=== PATIENT | female | born 1935 | race Caucasian/White ===

== ENCOUNTER 2017-10-16 17:22 | Inpatient (IN) | payer OTHER ==
[2017-10-16] MEDS: IPRATROPIUM (NEB) 0.5 MG/2.5 ML AMP NEB ×2 (17:52→21:48)
[2017-10-16] MEDS: ALBUTEROL 0.083% (NEB) 2.5 MG/3 ML AMP NEB (17:52)
[2017-10-16] MEDS: DILTIAZEM 50 MG INJ IV (18:01)
[2017-10-16] MEDS: PIPER-TAZO 3.375 GM IV (PMX) 100 ML IVPB (18:13)
[2017-10-16 18:21] LABS: ADD MAN DIFF? NO
[2017-10-16 18:23] LABS: BASOPHILS % 0.3 % (0.0-2.0); EOSINOPHILS % 0.3 % (0.0-7.0); HEMATOCRIT 45.7 % (37.0-47.0); HEMOGLOBIN 14.9 g/dl (12.0-16.0); LYMPHOCYTES # 1.4 10^3/ul (0.8-2.9); LYMPHOCYTES % 15.9 % (15.0-51.0); MEAN CORPUSCULAR HEMOGLOBIN 30.3 pg (29.0-33.0); MEAN CORPUSCULAR HGB CONC 32.6 g/dl (32.0-37.0); MEAN CORPUSCULAR VOLUME 92.9 fl (82.0-101.0); MEAN PLATELET VOLUME 9.8 fl (7.4-10.4); MONOCYTE # 0.7 10^3/ul (0.3-0.9); MONOCYTES % 7.7 % (0.0-11.0); NEUTROPHIL # 6.7 10^3/ul (1.6-7.5); NEUTROPHILS % 75.6 % (39.0-77.0); PLATELET COUNT 218 10^3/UL (140-415); RED BLOOD COUNT 4.92 10^6/ul (4.20-5.40); RED CELL DISTRIBUTION WIDTH 14.9 % (11.5-14.5)
[2017-10-16 18:23] LABS: WHITE BLOOD COUNT 8.9 10^3/ul (4.8-10.8)
[2017-10-16] MEDS: DILTIAZEM-D5W 125MG/125ML DRIP 125 ML IV (18:29)
[2017-10-16 18:44] LABS: LACTIC ACID 2.6 mmol/L (0.5-2.0)
[2017-10-16 18:45] LABS: INR 1.29; PROTIME 16.3 Sec (11.9-14.9); PT RATIO 1.3
[2017-10-16 18:46] LABS: PARTIAL THROMBOPLASTIN TIME 28.5 Sec (25.0-35.0)
[2017-10-16 18:47] LABS: ALANINE AMINOTRANSFERASE 31 IU/L (13-69); ALBUMIN 4.4 g/dl (3.3-4.9); ALBUMIN/GLOBULIN RATIO 1.25; ALKALINE PHOSPHATASE 88 IU/L (42-121); AMYLASE 41 U/L (11-123); ANION GAP 21 (8-16); ASPARTATE AMINO TRANSFERASE 39 IU/L (15-46); BLOOD UREA NITROGEN 18 mg/dl (7-20); CALCIUM 9.4 mg/dl (8.4-10.2); CARBON DIOXIDE 22 mmol/L (21-31); CHLORIDE 106 mmol/L (97-110); CREATINE KINASE 150 IU/L (23-200); CREATININE 0.68 mg/dl (0.44-1.00); GLUCOSE 194 mg/dl (70-220); POTASSIUM 4.2 mmol/L (3.5-5.1); SODIUM 145 mmol/L (135-144); TOTAL PROTEIN 7.9 g/dl (6.1-8.1)
[2017-10-16 18:56] LABS: B-TYPE NATRIURETIC PEPTIDE 7750 PG/ML (0-450); CK INDEX 3.5; CK-MB 5.24 ng/ml (0.0-2.4); TROPONIN-I 0.045 ng/ml (0.000-0.120)
[2017-10-16] MEDS: VANCOMYCIN 1 GM (PMX) 250 ML IVPB (18:59)
[2017-10-16] MEDS: SODIUM CHLORIDE 0.9% 1L BAG IV* (19:00)
[2017-10-16 19:14] LABS: AADO2 Arterial 286.4 mmHg (7.0-24.0); Allen Test ACCEPTAB; Arterial Base Excess -3.3 mmol/L (-3.0-3); Arterial Blood Gas Oxygen Sat 99.6 mmHG (95.0-100.0); Arterial COHb 0.4 % (0.0-3.0); Arterial Fraction of Oxyhgb 98.7 % (93.0-99.0); Arterial HCO3 20.7 mmol/L (22.0-26.0); Arterial MetHb 0.5 % (0.0-1.5); Arterial Total Hemglobin 14.6 g/dl (12.0-18.0); Arterial pCO2 34.5 mmhg (35-45); Blood Gas IEPAP 15/5; MODE MASK - BIPAP; Site Right Radial
[2017-10-16 19:20] LABS: ADD UMIC YES; UR ASCORBIC ACID NEGATIVE (NEGATIVE); UR BACTERIA FEW /HPF (NONE SEEN); UR BILIRUBIN (Dip) NEGATIVE (NEGATIVE); UR BLOOD (Dip) NEGATIVE (NEGATIVE); UR CLARITY SLIGHTLY CLOUDY (CLEAR); UR COLOR AMBER (YELLOW); UR GLUCOSE (Dip) 1+ mg/dL (NEGATIVE); UR KETONES (Dip) TRACE mg/dL (NEGATIVE); UR LEUKOCYTE ESTERASE (Dip) NEGATIVE Leu/ul (NEGATIVE); UR MUCUS MODERATE /HPF (NONE SEEN); UR NITRITE (Dip) NEGATIVE (NEGATIVE); UR RBC 3 /HPF (0-5); UR SPECIFIC GRAVITY (Dip) 1.028 (1.003-1.030); UR SQUAMOUS EPITHELIAL CELL FEW /HPF (FEW); UR TOTAL PROTEIN (Dip) 2+ mg/dl (NEGATIVE); UR UROBILINOGEN (Dip) 2+ mg/dL (NEGATIVE); UR WBC 3 /HPF (0-5)
[2017-10-16 20:39] LABS: LACTIC ACID 2.3 mmol/L (0.5-2.0)
[2017-10-16] MEDS: ALBUTEROL 0.5% (NEB) 2.5 MG/0.5 ML AMP NEB (21:48)
[2017-10-16 22:21] LABS: LACTIC ACID 2.6 mmol/L (0.5-2.0)
[2017-10-16] MEDS ORDERED: ONDANSETRON 4 MG INJ IV (22:30)
[2017-10-16] MEDS ORDERED: ACETAMINOPHEN 325 MG TAB PO (22:30)
[2017-10-17] MEDS ORDERED: ONDANSETRON 4 MG INJ IV
[2017-10-17] MEDS ORDERED: NACL 0.9% 3 ML SYG IV
[2017-10-17] MEDS ORDERED: DILTIAZEM-D5W 125MG/125ML DRIP 125 ML IV
[2017-10-17] MEDS ORDERED: NITROGLYCERIN (SL) 0.4 MG TAB SL
[2017-10-17] MEDS ORDERED: morphine LIQ (10 MG/5 ML) CUP PO
[2017-10-17] MEDS: IOHEXOL 300MG/ML 150 ML BTL (00:14)
[2017-10-17] MEDS: SOD CHLORIDE 0.9% 100 ML ×2 (00:14→10:16)
[2017-10-17] MEDS: INSULIN ASPART [NOVOLOG] 3 ML PEN SC ×7 (00:29→21:00)
[2017-10-17] MEDS ORDERED: GLUCAGON 1 MG INJ IM (00:30)
[2017-10-17] MEDS ORDERED: DEXTROSE 50% 50 ML SYRINGE IV ×2 (00:30)
[2017-10-17] MEDS ORDERED: GLUCOSE GEL 15 GRAM TUBE PO ×2 (00:30)
[2017-10-17] MEDS ORDERED: GLUCOSE GEL 15 GRAM TUBE BUCCAL (00:30)
[2017-10-17] MEDS: METOPROLOL 25 MG TAB PO ×3 (00:34→21:22)
[2017-10-17] MEDS: FUROSEMIDE 20 MG INJ IV ×3 (00:34→17:19)
[2017-10-17 00:54] LABS: CREATINE KINASE 130 IU/L (23-200)
[2017-10-17 01:07] LABS: CK-MB 5.16 ng/ml (0.0-2.4); TROPONIN-I 0.048 ng/ml (0.000-0.120)
[2017-10-17] MEDS: ACCU-CHEK XX (02:00)
[2017-10-17 06:57] LABS: ADD MAN DIFF? NO
[2017-10-17 07:05] LABS: BASOPHILS % 0.3 % (0.0-2.0); EOSINOPHILS % 0.6 % (0.0-7.0); HEMATOCRIT 39.7 % (37.0-47.0); HEMOGLOBIN 12.5 g/dl (12.0-16.0); LYMPHOCYTES # 0.8 10^3/ul (0.8-2.9); LYMPHOCYTES % 11.9 % (15.0-51.0); MEAN CORPUSCULAR HEMOGLOBIN 29.7 pg (29.0-33.0); MEAN CORPUSCULAR HGB CONC 31.5 g/dl (32.0-37.0); MEAN CORPUSCULAR VOLUME 94.3 fl (82.0-101.0); MEAN PLATELET VOLUME 9.5 fl (7.4-10.4); MONOCYTE # 0.6 10^3/ul (0.3-0.9); MONOCYTES % 9.4 % (0.0-11.0); NEUTROPHILS % 77.6 % (39.0-77.0); PLATELET COUNT 152 10^3/UL (140-415); RED BLOOD COUNT 4.21 10^6/ul (4.20-5.40); RED CELL DISTRIBUTION WIDTH 14.9 % (11.5-14.5)
[2017-10-17 07:05] LABS: WHITE BLOOD COUNT 6.4 10^3/ul (4.8-10.8)
[2017-10-17 07:23] LABS: CREATINE KINASE 132 IU/L (23-200)
[2017-10-17 07:35] LABS: CK INDEX 3.2; CK-MB 4.22 ng/ml (0.0-2.4); TROPONIN-I 0.059 ng/ml (0.000-0.120)
[2017-10-17 07:42] LABS: LACTIC ACID 2.1 mmol/L (0.5-2.0)
[2017-10-17 08:02] LABS: ALANINE AMINOTRANSFERASE 30 IU/L (13-69); ALBUMIN 3.4 g/dl (3.3-4.9); ALKALINE PHOSPHATASE 66 IU/L (42-121); ANION GAP 15 (8-16); ASPARTATE AMINO TRANSFERASE 26 IU/L (15-46); BILIRUBIN,INDIRECT 0.7 mg/dl (0-1.1); BILIRUBIN,TOTAL 0.7 mg/dl (0.2-1.3); BLOOD UREA NITROGEN 17 mg/dl (7-20); CALCIUM 8.8 mg/dl (8.4-10.2); CARBON DIOXIDE 26 mmol/L (21-31); CHLORIDE 110 mmol/L (97-110); CHOL/HDL RATIO 2.8 RATIO; CHOLESTEROL 147 mg/dl (100-200); CREATININE 0.75 mg/dl (0.44-1.00); GLUCOSE 171 mg/dl (70-220); HDL CHOLESTEROL 52 mg/dl (33-92); LDL CHOLESTEROL,CALCULATED 77 mg/dl; MAGNESIUM 1.6 mg/dl (1.7-2.5); POTASSIUM 3.8 mmol/L (3.5-5.1); SODIUM 147 mmol/L (135-144); TRIGLYCERIDES 90 mg/dl (0-149)
[2017-10-17] MEDS: ASPIRIN 81 MG TAB PO (08:28)
[2017-10-17 09:02] LABS: HEMOGLOBIN A1C 8.5 % (0-5.9)
[2017-10-17] MEDS ORDERED: LEVALBUTEROL (NEB) 0.63 MG/3 ML AMP HHN (10:00)
[2017-10-17] MEDS: IODIXANOL LOCM 100 ML BTL (10:17)
[2017-10-17] MEDS: MAGNESIUM SULFATE 2 GM/50 ML 50 ML IVPB (10:44)
[2017-10-17] MEDS: LEVALBUTEROL (NEB) 0.63 MG/3 ML AMP HHN ×2 (12:58→19:55)
[2017-10-17] MEDS: INSULIN GLARGINE [LANtus] 3 ML PEN SC (21:10)
[2017-10-18] MEDS: IPRATROPIUM (NEB) 0.5 MG/2.5 ML AMP NEB (01:13)
[2017-10-18] MEDS: LEVALBUTEROL (NEB) 0.63 MG/3 ML AMP HHN ×4 (01:13→20:02)
[2017-10-18] MEDS: ACCU-CHEK XX (02:00)
[2017-10-18] MEDS: FUROSEMIDE 20 MG INJ IV (05:35)
[2017-10-18 07:03] LABS: ADD MAN DIFF? NO
[2017-10-18 07:07] LABS: WHITE BLOOD COUNT 6.3 10^3/ul (4.8-10.8)
[2017-10-18 07:07] LABS: BASOPHILS % 0.5 % (0.0-2.0); EOSINOPHILS # 0.2 10^3/ul (0.0-0.5); EOSINOPHILS % 2.4 % (0.0-7.0); HEMATOCRIT 40.7 % (37.0-47.0); HEMOGLOBIN 12.8 g/dl (12.0-16.0); LYMPHOCYTES % 16.3 % (15.0-51.0); MEAN CORPUSCULAR HEMOGLOBIN 29.6 pg (29.0-33.0); MEAN CORPUSCULAR HGB CONC 31.4 g/dl (32.0-37.0); MEAN CORPUSCULAR VOLUME 94.2 fl (82.0-101.0); MEAN PLATELET VOLUME 9.3 fl (7.4-10.4); MONOCYTE # 0.6 10^3/ul (0.3-0.9); MONOCYTES % 9.5 % (0.0-11.0); NEUTROPHIL # 4.5 10^3/ul (1.6-7.5); NEUTROPHILS % 70.8 % (39.0-77.0); PLATELET COUNT 147 10^3/UL (140-415); RED BLOOD COUNT 4.32 10^6/ul (4.20-5.40); RED CELL DISTRIBUTION WIDTH 14.9 % (11.5-14.5)
[2017-10-18 07:31] LABS: ALANINE AMINOTRANSFERASE 31 IU/L (13-69); ALBUMIN 3.4 g/dl (3.3-4.9); ALBUMIN/GLOBULIN RATIO 1.21; ALKALINE PHOSPHATASE 60 IU/L (42-121); ANION GAP 14 (8-16); ASPARTATE AMINO TRANSFERASE 26 IU/L (15-46); BILIRUBIN,INDIRECT 0.7 mg/dl (0-1.1); BILIRUBIN,TOTAL 0.7 mg/dl (0.2-1.3); BLOOD UREA NITROGEN 22 mg/dl (7-20); CALCIUM 8.7 mg/dl (8.4-10.2); CARBON DIOXIDE 28 mmol/L (21-31); CHLORIDE 107 mmol/L (97-110); CREATININE 0.81 mg/dl (0.44-1.00); GLUCOSE 171 mg/dl (70-220); POTASSIUM 3.7 mmol/L (3.5-5.1); SODIUM 145 mmol/L (135-144); TOTAL PROTEIN 6.2 g/dl (6.1-8.1)
[2017-10-18 07:32] LABS: CHOL/HDL RATIO 2.9 RATIO; CHOLESTEROL 146 mg/dl (100-200); HDL CHOLESTEROL 49 mg/dl (33-92); LDL CHOLESTEROL,CALCULATED 82 mg/dl; MAGNESIUM 1.8 mg/dl (1.7-2.5); TRIGLYCERIDES 74 mg/dl (0-149)
[2017-10-18 07:32] LABS: PHOSPHORUS 4.2 mg/dl (2.5-4.9)
[2017-10-18 07:43] LABS: B-TYPE NATRIURETIC PEPTIDE 4240 PG/ML (0-450); TROPONIN-I 0.052 ng/ml (0.000-0.120)
[2017-10-18 07:50] LABS: FREE T4 (FREE THYROXINE) 0.95 ng/dl (0.85-1.93)
[2017-10-18] MEDS: INSULIN ASPART [NOVOLOG] 3 ML PEN SC ×7 (07:55→20:35)
[2017-10-18] MEDS: ASPIRIN 81 MG TAB PO (08:09)
[2017-10-18] MEDS: METOPROLOL 25 MG TAB PO (08:09)
[2017-10-18] MEDS: ENOXAPARIN 40 MG/0.4 ML SYG SC (08:11)
[2017-10-18] MEDS: ACETAMINOPHEN 325 MG TAB PO (12:35)
[2017-10-18] MEDS: METOPROLOL (XL) 25 MG TAB PO ×2 (12:37→20:35)
[2017-10-18] MEDS: FUROSEMIDE 40 MG INJ IV (18:10)
[2017-10-18] MEDS: metFORMIN 500 MG TAB PO (18:10)
[2017-10-18] MEDS: INSULIN GLARGINE [LANtus] 3 ML PEN SC (20:30)
[2017-10-19] MEDS: IPRATROPIUM (NEB) 0.5 MG/2.5 ML AMP NEB (01:54)
[2017-10-19] MEDS: LEVALBUTEROL (NEB) 0.63 MG/3 ML AMP HHN ×3 (01:54→14:17)
[2017-10-19] MEDS: ACCU-CHEK XX (02:00)
[2017-10-19] MEDS: FUROSEMIDE 40 MG INJ IV ×2 (05:39→17:02)
[2017-10-19 07:40] LABS: ADD MAN DIFF? NO
[2017-10-19 07:45] LABS: BASOPHILS % 0.5 % (0.0-2.0); EOSINOPHILS # 0.2 10^3/ul (0.0-0.5); HEMATOCRIT 41.9 % (37.0-47.0); HEMOGLOBIN 13.3 g/dl (12.0-16.0); LYMPHOCYTES # 1.1 10^3/ul (0.8-2.9); LYMPHOCYTES % 16.5 % (15.0-51.0); MEAN CORPUSCULAR HEMOGLOBIN 29.6 pg (29.0-33.0); MEAN CORPUSCULAR HGB CONC 31.7 g/dl (32.0-37.0); MEAN CORPUSCULAR VOLUME 93.3 fl (82.0-101.0); MEAN PLATELET VOLUME 9.5 fl (7.4-10.4); MONOCYTE # 0.6 10^3/ul (0.3-0.9); MONOCYTES % 9.4 % (0.0-11.0); NEUTROPHIL # 4.6 10^3/ul (1.6-7.5); NEUTROPHILS % 70.1 % (39.0-77.0); PLATELET COUNT 145 10^3/UL (140-415); RED BLOOD COUNT 4.49 10^6/ul (4.20-5.40); RED CELL DISTRIBUTION WIDTH 14.6 % (11.5-14.5)
[2017-10-19 07:45] LABS: WHITE BLOOD COUNT 6.6 10^3/ul (4.8-10.8)
[2017-10-19 08:03] LABS: ANION GAP 13 (8-16); BLOOD UREA NITROGEN 24 mg/dl (7-20); CALCIUM 8.6 mg/dl (8.4-10.2); CARBON DIOXIDE 32 mmol/L (21-31); CHLORIDE 102 mmol/L (97-110); CREATININE 0.74 mg/dl (0.44-1.00); GLUCOSE 131 mg/dl (70-220); POTASSIUM 3.4 mmol/L (3.5-5.1); SODIUM 144 mmol/L (135-144)
[2017-10-19] MEDS: metFORMIN 500 MG TAB PO ×2 (08:04→17:02)
[2017-10-19] MEDS: ASPIRIN 81 MG TAB PO (08:04)
[2017-10-19] MEDS: METOPROLOL (XL) 25 MG TAB PO (08:05)
[2017-10-19] MEDS: INSULIN ASPART [NOVOLOG] 3 ML PEN SC ×6 (08:07→17:08)
[2017-10-19] MEDS: ENOXAPARIN 40 MG/0.4 ML SYG SC (08:09)
[2017-10-19 08:13] LABS: LACTIC ACID 1.8 mmol/L (0.5-2.0)
== END 2017-10-19 19:39 | disposition short-term general hospital (02) | DRG 308 ==
LOC: E/R 17:22 → TEL 22:17
DX: I48.91 Unspecified atrial fibrillation (principal); J96.01 Acute respiratory failure with hypoxia; I50.23 Acute on chronic systolic (congestive) heart failure; Z68.41 Body mass index [BMI] 40.0-44.9, adult; E87.0 Hyperosmolality and hypernatremia; I11.0 Hypertensive heart disease with heart failure; E11.9 Type 2 diabetes mellitus without complications; E66.9 Obesity, unspecified; I27.20 Pulmonary hypertension, unspecified; K74.60 Unspecified cirrhosis of liver; Z91.81 History of falling
CPT/HCPCS: 36415; 36600; 70450; 71045; 71275; 72192; 76705; 80048; 80053; 80061; 81001; 82150; 82550; 82553; 82803; 82962; 83036; 83605; 83735; 83880; 84100; 84439; 84443; 84484; 85025; 85610; 85730; 87040; 87086; 93005; 93306; 93970; 94640; 94644; 94660; 94664; 96374; 96375; 96376; 97163; 99291-25